=== PATIENT | male | born 1965 | race Caucasian/White ===

== ENCOUNTER 2022-06-12 10:00 | Outpatient (CLI) | payer OTHER, SELFPAY ==
[2022-06-12 13:23] LABS: Anion Gap 9 mmol/L (8-16); Blood Urea Nitrogen 17 mg/dL (9-20); Calcium 9.4 mg/dL (8.4-10.2); Carbon Dioxide 23 mmol/L (22-30); Chloride 106 mmol/L (98-107); Estimated Glomerular Filt Rate > 60; Glucose 88 mg/dL (65-110); Potassium 4.2 mmol/L (3.4-5.0); Sodium 138 mmol/L (137-145)
[2022-06-12 13:35] LABS: LDL Cholesterol Direct 46 mg/dL
[2022-06-12 14:06] LABS: Creatinine Urine 78.9 mg/dL
[2022-06-12 14:25] LABS: Microalbumin Urine Random < 6.0 mg/L (0-16.7)
[2022-06-12 14:26] LABS: MALB Creatinine Ratio < 7.6 mg/g (0-30)
== END 2022-06-12 10:01 | disposition home or self-care (01) ==
LOC: ANHWCLAB 10:04
PROVIDERS: Referring Provider Internal Medicine Endocrinology, Diabetes & Metabolism; Visit Provider Internal Medicine Endocrinology, Diabetes & Metabolism
DX: E11.65 Type 2 diabetes mellitus with hyperglycemia (principal); E88.81 Metabolic syndrome and other insulin resistance
CPT/HCPCS: 36415; 80048; 82043; 82607; 83721; 84443

== ENCOUNTER 2024-04-29 09:50 | Outpatient (CLI) | payer BC, SELFPAY ==
--- NOTE | ~2024-04-29 | US_ITS ---
EXAMINATION: US thyroid DATE: 04/29/2024 10:40 INDICATION: Thyroid nodule TECHNIQUE: Multiple ultrasound images of the thyroid were obtained. COMPARISON: None. FINDINGS: The right thyroid lobe measures 6.4 x 2.4 x 3.4 cm. The left thyroid lobe measures 5.2 x 2.1 x 1.4 c m. 3.7 x 2.2 x 1.6 cm solid wider than tall heterogeneously hypoechoic mass with mildly lobular ray ins and without echogenic foci in the right thyroid lobe (TI-RADS 4, moderately suspicious , FNA if > =1.5 cm, annual followup is >=1 cm). There is a second smaller 1.6 cm TI RADS 4 nodule with similar i maging features at the more inferior right thyroid lobe. IMPRESSION: 1. Pair of similar-appearing TI-RADS 4 nodules in the right thyroid lobe. Recommend ultrasound-guided biopsy of the larger 3.7 cm nodule. Reviewed, dictated and finalized at location A. IMPRESSION: 1. Pair of similar-appearing TI-RADS 4 nodules in the right thyroid lobe. Recom mend ultrasound-guided biopsy of the larger 3.7 cm nodule.
== END 2024-04-29 09:51 | disposition home or self-care (01) ==
LOC: ANHIMG 09:51
PROVIDERS: Visit Provider Internal Medicine
DX: E04.2 Nontoxic multinodular goiter (principal); E11.65 Type 2 diabetes mellitus with hyperglycemia; E78.5 Hyperlipidemia, unspecified; I10 Essential (primary) hypertension
CPT/HCPCS: 76536

== ENCOUNTER 2024-06-14 12:41 | Outpatient (CLI) | payer BC, SELFPAY ==
--- NOTE | ~2024-06-14 | US_ITS ---
EXAMINATION: 1. US FNA w image guidance 2. US FNA additional DATE: 06/14/2024 14:05 INDICATION: Thyroid nodules. TECHNIQUE: The procedure and its benefits and risks were discussed with the patient. Risks specifically discusse d included bleeding. The patient verbalized understanding of the risks and agreed to proceed. The nec k was prepped and draped in the usual sterile manner. 1% lidocaine was used for local anesthesia. 6 passes were made with a 25G needle into the lesion in superior right thyroid lobe under ultrasound g uidance. 6 passes were made with a 25-gauge needle into the lesion in inferior right thyroid lobe under ultras ound guidance. There were no immediate complications. FINDINGS: Grayscale ultrasound images demonstrate needles advanced into a 3.7 cm nodule in superior right thyro id lobe for biopsy. Grayscale ultrasound images demonstrate needles advanced into a 1.6 cm nodule in inferior right thyroid lobe for biopsy. IMPRESSION: 1. Ultrasound-guided fine needle aspiration of a superior right thyroid nodule. 2. Ultrasound-guided fine needle aspiration of an inferior right thyroid nodule. Reviewed, dictated and finalized at location A. IMPRESSION: 1. Ultrasound-guided fine needle aspiration of a superior right thyroid nodule . 2. Ultrasound-guided fine needle aspiration of an inferior right thyroid nodule .
== END 2024-06-14 12:42 | disposition home or self-care (01) ==
LOC: ANHIMG 12:42
PROVIDERS: Visit Provider Internal Medicine
DX: E04.2 Nontoxic multinodular goiter (principal)
CPT/HCPCS: 10005; 10006; 88172; 88173; 88305

== ENCOUNTER 2024-09-24 12:21 | Outpatient (CLI) | payer BC, SELFPAY ==
--- NOTE | ~2024-09-24 | US_ITS ---
EXAMINATION: US FNA w image guidance DATE: 09/24/2024 13:22 INDICATION: Right thyroid nodule. TECHNIQUE: The procedure and its benefits and risks were discussed with the patient. Risks specifically discusse d included bleeding. The patient verbalized understanding of the risks and agreed to proceed. The nec k was prepped and draped in the usual sterile manner. 1% lidocaine was used for local anesthesia. 6 passes were made with a 25G needle into the lesion under ultrasound guidance. There were no immedia te complications. FINDINGS: Grayscale ultrasound images demonstrate needles advanced into a 1.6 cm nodule in right thyroid lobe f or biopsy. IMPRESSION: 1. Ultrasound-guided fine needle aspiration of a right thyroid nodule. Reviewed, dictated and finalized at location A. [employer]
== END 2024-09-24 12:22 | disposition home or self-care (01) ==
LOC: ANHIMG 12:25
PROVIDERS: Visit Provider Internal Medicine
DX: E04.1 Nontoxic single thyroid nodule (principal); E11.65 Type 2 diabetes mellitus with hyperglycemia
CPT/HCPCS: 10005; 88172; 88173; 88305

== ENCOUNTER 2025-06-16 14:08 | Outpatient (CLI) | payer BC, SELFPAY ==
--- NOTE | ~2025-06-16 | US_ITS ---
US thyroid INDICATION: Multinodular goiter. Previous benign right thyroid biopsy. TECHNIQUE: Real-time sonographic images of the thyroid gland were obtained. COMPARISON: 04/29/2024 and 09/24/2024 FINDINGS: The right thyroid lobe measures 5.6 x 3.2 x 2.9 cm.. The left thyroid lobe measures 4.4 x 1.8 x 2.3 cm. Thyroid echotexture is heterogeneous. There are multiple right masses of the right thyr oid gland, the largest of which is solid, hypoechoic, wider than tall, smoothly marginated without ec hogenic foci measuring 3.8 x 1.8 x 3.3 cm, TR 4, increased in size compared with prior study, recomme nd follow-up ultrasound in 12 months. Also in the right lobe there is a solid hypoechoic wider than t all smoothly marginated mass with macrocalcification measuring 1.8 x 1.2 x 1.2 cm. This mass was prev iously biopsy-proven benign. IMPRESSION: 1. Right thyroid masses may be slightly increased, although previously biopsy-proven benign. Finding s compatible with multinodular goiter. Reviewed, dictated and finalized at location A. IMPRESSION: 1. Right thyroid masses may be slightly increased, although previously biopsy- proven benign. Findings compatible with multinodular goiter.
== END 2025-06-16 14:09 | disposition home or self-care (01) ==
PROVIDERS: PCP Physician Assistant; Visit Provider Internal Medicine
DX: E04.2 Nontoxic multinodular goiter (principal)
CPT/HCPCS: 76536